=== PATIENT | female | born 1990 | race Caucasian/White ===

== ENCOUNTER 2016-11-19 09:31 | Emergency (ER) | payer OTHER ==
[2016-11-19 11:32] LABS: BILIRUBIN NEGATIVE (NEGATIVE); BLOOD NEGATIVE Ery/uL (NEGATIVE); CLARITY CLEAR (CLEAR); COLOR YELLOW (YELLOW); GLUCOSE (U) NORMAL (NORMAL); KETONE (U) NEGATIVE (NEGATIVE); LEUKOCYTES NEGATIVE Leu/uL (NEGATIVE); NITRITE NEGATIVE (NEGATIVE); PROTEIN NEGATIVE (NEGATIVE); UROBILINOGEN 0.2 mg/dL (0.2-1.0); pH 7.5 (5.0-9.0)
[2016-11-19 11:49] LABS: CREATININE 0.6 mg/dL (0.5-1.0); POTASSIUM 3.7 mmol/L (3.5-5.1)
[2016-11-19 12:23] LABS: BASOPHIL 0.2 % (0-2); EOSINOPHIL 1.5 % (0-5); HCT 33.9 % (37.0-47.0); HGB 11.5 g/dl (12.5-16.0); LYMPHOCYTE 18.9 % (15-48); MCH 29.6 pg (25.0-31.0); MCHC 33.9 g/dL (32.0-36.0); MCV 87.1 fL (78.0-100.0); MONOCYTE 7.1 % (0-12); MPV 9.8 fL (6.0-9.5); NEUTROPHIL 72.3 % (41-80); PLT 259 K/uL (150-400); RBC 3.89 M/uL (4.20-5.40); RDW 13.2 % (11.5-14.0)
[2017-01-03] MEDS ORDERED: COLACE100 M1 PO (10:14)
[2017-01-03] MEDS ORDERED: LANOLIN HYDROUS28 GM TOP (10:15)
[2017-01-03] MEDS ORDERED: ENGERIX B IM (10:17)
[2017-01-03] MEDS ORDERED: PERCOCET 5/3251 TAB PO (10:18)
[2017-01-03] MEDS ORDERED: ZOLOFT50 MG PO (10:19)
== END 2016-11-19 14:29 | disposition home or self-care (01) ==
LOC: FER 09:31
PROVIDERS: Nurse Practitioner Family
DX: O26.899 Other specified pregnancy related conditions, unspecified trimester (principal); R10.84 Generalized abdominal pain; R10.2 Pelvic and perineal pain; Z90.49 Acquired absence of other specified parts of digestive tract; Z3A.00 Weeks of gestation of pregnancy not specified
CPT/HCPCS: 36415; 80048; 81003; 85025; 86850; 86900; 86901